=== PATIENT | female | born 1945 | race Caucasian/White ===

== ENCOUNTER 2018-11-17 10:33 | Observation (INO) | payer OTHER, MEDICARE ==
--- NOTE | 2018-11-17 10:40 | PDOC ---
History of Present Illness - General Chief Complaint: Chest Pain Stated Complaint: CHEST PAIN Time Seen by Provider: 11/17/18 10:40 History Source: Patient - History of Present Illness Initial Comments: 11/17/18 11:15 Pt presents to the ED complaining of the acute onset of jaw pain radiating to her lower neck and left chest. Pain was sharp and severe. Denies nausea, vomiting, shortness of breath. Symptoms resolved in 30 minutes with rest and deep breathing. patient was seen by Dr. Yanes in October for similar complaints , had an EKG and chest xray that were negative, but no further testing. Patient is currently chest pain free, and denies cardiac history or risk factors. 11/17/18 11:19 Past History - Past Medical History Allergies/Adverse Reactions: Allergies Allergy/AdvReac Type Severity Reaction Status Date / Time propofol Allergy Verified 09/20/15 07:45 Home Medications: Ambulatory Orders Cholecalciferol (Vitamin D3) [Vitamin D3] 2,000 unit PO DAILY capsule 05/17/15 Bupropion HCl [Wellbutrin Xl -] 150 mg PO DAILY 11/17/18 Glucosamine Sulfate Dipot Chlr [Glucosamine Sulfate] 3,000 mg PO DAILY 11/17/18 Iron 27 mg PO DAILY 11/17/18 Magnesium Oxide [Magnesium] 500 mg PO DAILY 11/17/18 Methylprednisolone [Medrol -] 4 mg PO DAILY 11/17/18 Selenium 200 mcg PO DAILY 11/17/18 Thyroid,Pork [Cardiac Cath Rn Thyroid] 105 mg PO DAILY 11/17/18 Tolterodine Tartrate [Tolterodine Tartrate ER] 4 mg PO DAILY 11/17/18 Anemia: No Asthma: No Cancer: No Cardiac Disorders: Yes (PALPITATIONS) CVA: No COPD: No CHF: No Dementia: No Diabetes: No GI Disorders: Yes (HX.COLON POLYPS,ANGULATED COLON) Disorders: No HTN: No Hypercholesterolemia: Yes Liver Disease: No Seizures: Yes Thyroid Disease: Yes (CISCO'S THYROIDITIS) - Surgical History Abdominal Surgery: No Appendectomy: No Cardiac Surgery: No Cholecystectomy: Yes Lung Surgery: No Neurologic Surgery: No Orthopedic Surgery: No - Suicide/Smoking/Psychosocial Hx Smoking Status: No Smoking History: Former smoker Have you smoked in the past 12 months: No Number of Cigarettes Smoked Daily: 0 Hx Alcohol Use: No Drug/Substance Use Hx: No Substance Use Type: None Hx Substance Use Treatment: No Review of Systems - Review of Systems Able to Perform ROS?: Yes Is the patient limited Wolof proficient: No Constitutional: No: Symptoms Reported, See HPI, Chills, Diaphoresis, Fever, Loss of Appetite, Malaise, Night Sweats, Weakness, Weight Stable, Unintentional Wgt. Loss, Unexplained wgt Loss, Other HEENTM: No: Symptoms Reported, See HPI, Eye Pain, Blurred Vision, Tearing, Recent change in vision, Double Vision, Cataracts, Ear Pain, Ocular Prothesis, Ear Discharge, Nose Pain, Nose Congestion, Tinnitus, Nose Bleeding, Hearing Loss , Throat Pain, Throat Swelling, Mouth Pain, Dental Problems, Difficulty Swallowing, Mouth Swelling, Other Respiratory: No: Symptoms reported, See HPI, Cough, Orthopnea, Shortness of Breath, SOB with Exertion, SOB at Rest, Stridor, Wheezing, Productive cough, Hemoptysis, Other Cardiac (ROS): Yes: Chest Pain. No: Symptoms Reported, See HPI, Edema, Irregular Heart Rate, Lightheadedness, Palpitations, Syncope, Chest Tightness, Other ABD/GI: No: Symptoms Reported, See HPI, Abdominal Distended, Abd. Pain w/ defecation, Blood Streaked Bowels, Constipated, Diarrhea, Difficulty Swallowing , Nausea, Poor Appetite, Poor Fluid Intake, Rectal Bleeding, Vomiting, Indigestion, Abdominal cramping, Tarry Stools, Other : No: Symptoms Reported, See HPI, Burning, Dysuria, Discharge, Frequency, Flank Pain, Hematuria, Incontinence, Pain, Urgency, Testicular Mass, Testicular Swelling, Lesions, Testicular Pain, Other Musculoskeletal: No: Symptoms Reported, See HPI, Back Pain, Gout, Joint Pain, Joint Swelling, Muscle Pain, Muscle Weakness, Neck Pain, Joint Stiffness, Other Integumentary: No: Symptoms Reported, See HPI, Bruising, Change in Color, Change in Hair/Nails, Dryness, Erythema, Flushing, Lesions, Lumps, Pallor, Pruritus, Rash, Sweating, Other Neurological: No: Symptoms reported, See HPI, Headache, Numbness, Paresthesia, Pre-Existing Deficit, Seizure, Tingling, Tremors, Weakness, Unsteady Gait, Ataxia, Dizziness, Other All Other Systems: Reviewed and Negative *Physical Exam - Physical Exam Comments: 09/08/19 11:20 gen: alert, NAD HEENT: normocephalic, atraumatic CV: rrr no m/r/g Pulm: CTA b/l Abdomen: soft non tender non distended Ext: no edema or tenderness. ED Treatment Course - LABORATORY CBC & Chemistry Diagram: 11/17/18 11:15 11/17/18 11:15 Medical Decision Making - Medical Decision Making 11/17/18 11:21 Pt presents to the ED complaining of jaw pain radiating to the left chest. EKG is normal and patient is chest pain free. Given age and the nature of her symptoms, I am concerned for ACS. HEART score is 4. Will check labs and cardiac enzymes and admit for observation for rule out [place]. *DC/Admit/Observation/Transfer Diagnosis at time of Disposition: Chest pain Qualifiers: Chest pain type: other chest pain Qualified Code(s): R07.89 - Other chest pain ; R07.8 - Other chest pain - Discharge Dispostion Condition at time of disposition: Good Decision to Admit order: Yes - Referrals Referrals: Saurav Yanes MD [Primary Care Provider] - - Patient Instructions - Post Discharge Activity
[2018-11-17] MEDS ORDERED: ASPIRIN 325 MG TABLET PO ONE (10:54)
[2018-11-17] MEDS ORDERED: ASPIRIN 81 MG CHEWABLE TABLETS ONE (11:05)
[2018-11-17 11:36] LABS: BASO % 0.2 % (0-2.0); EOS % 0.6 % (0-4.5); HEMATOCRIT 40.8 % (32.4-45.2); HEMOGLOBIN 13.3 GM/dl (10.7-15.3); LYMPH % 29.6 % (8-40); MCH 27.3 pg (25.7-33.7); MCHC 32.6 g/dl (32.0-36.0); MEAN CELL VOLUME 83.8 fl (80-96); MEAN PLT VOLUME 7.8 fl (7.5-11.1); MONO % 6.9 % (3.8-10.2); NEUT % 62.7 % (42.8-82.8); PLATELET COUNT 267 K/MM3 (134-434); RBC 4.86 M/mm3 (3.60-5.2); RDW 13.6 % (11.6-15.6); WHITE BLOOD COUNT 7.9 K/mm3 (4.0-10.8)
[2018-11-17 11:47] LABS: BILIRUBIN,TOTAL 0.6 mg/dl (0.2-1); CALCIUM 9.1 mg/dl (8.5-10); CREATININE 1.2 mg/dl (0.55-1.3); POTASSIUM 4.4 mmol/L (3.5-5.1); TOT PROT 6.3 g/dl (6.4-8.2)
[2018-11-17 12:49] LABS: EPITHELIAL CELLS FEW /hpf
[2018-11-17 15:14] VITALS: BMI 29.6
--- NOTE | 2018-11-17 17:52 | HP ---
CHIEF COMPLAINT: jaw pain with radiation to lower neck and left chest and fatigue PCP:Dr. Martinez HISTORY OF PRESENT ILLNESS: Mrs. Gottlieb is a 73 year old female with past medical history of Elvia Disease who presents with symptoms of jaw pain radiating to her lower neck and left chest described as sharp and severe which started at 10 am this morning while she was doing errands around the house. She reported symptoms lasted about 10 minutes. She denied diaphoresis, nausea, vomiting, or shortness of breath. She also reported feeling "tired". Patient was seen by Dr. Yanes in October for similar complaints. She had an EKG and chest xray which were negative , but no further testing. She also reported a similar symptoms earlier this Spring. Patient is being admitted to observation to telemetry for further cardiac evaluation. ER course was notable for: (1)2 normal troponins (2)CXR no acute pathology (3) EKG sinus rhythm no acute ischemia Recent Travel: reported travel last month PAST MEDICAL HISTORY: Elvia PAST SURGICAL HISTORY: denies Social History: Smoking:reported tobacco use only as a teenager Alcohol:no Drugs: no Family History: Father had cancer Mother had cancer Allergies propofol Allergy (Verified 09/20/15 07:45) SEVERE CHILLS,SHAKE HOME MEDICATIONS: Home Medications Medication Instructions Recorded Cholecalciferol (Vitamin D3) 2,000 unit PO DAILY capsule 05/17/15 [Vitamin D3] Bupropion HCl [Wellbutrin Xl -] 150 mg PO DAILY 11/17/18 Glucosamine Sulfate Dipot Chlr 3,000 mg PO DAILY 11/17/18 [Glucosamine Sulfate] Iron 27 mg PO DAILY 11/17/18 Magnesium Oxide [Magnesium] 500 mg PO DAILY 11/17/18 Methylprednisolone [Medrol -] 4 mg PO DAILY 11/17/18 Selenium 200 mcg PO DAILY 11/17/18 Thyroid,Pork [Breaker Engineer Thyroid] 105 mg PO DAILY 11/17/18 Tolterodine Tartrate [Tolterodine 4 mg PO DAILY 11/17/18 Tartrate ER] REVIEW OF SYSTEMS CONSTITUTIONAL: Absent: fever, chills, diaphoresis, generalized weakness, malaise, loss of appetite, weight change,fatigue HEENT: Absent: rhinorrhea, nasal congestion, throat pain, throat swelling, difficulty swallowing, mouth swelling, ear pain, eye pain, visual changes CARDIOVASCULAR: Absent: chest pain, syncope, palpitations, irregular heart rate, lightheadedness , peripheral edema RESPIRATORY: Absent: cough, shortness of breath, dyspnea with exertion, orthopnea, wheezing, stridor, hemoptysis GASTROINTESTINAL: Absent: abdominal pain, abdominal distension, nausea, vomiting, diarrhea, constipation, melena, hematochezia GENITOURINARY: Absent: dysuria, frequency, urgency, hesitancy, hematuria, flank pain, genital pain MUSCULOSKELETAL: Absent: myalgia, arthralgia, joint swelling, back pain, neck and jaw pain SKIN: Absent: rash, itching, pallor HEMATOLOGIC/IMMUNOLOGIC: Absent: easy bleeding, easy bruising, lymphadenopathy, frequent infections ENDOCRINE: Absent: unexplained weight gain, unexplained weight loss, heat intolerance, cold intolerance NEUROLOGIC: Absent: headache, focal weakness or paresthesias, dizziness, unsteady gait, seizure, mental status changes, bladder or bowel incontinence PSYCHIATRIC: Absent: anxiety, depression, suicidal or homicidal ideation, hallucinations. PHYSICAL EXAMINATION Vital Signs - 24 hr 11/17/18 11/17/18 11/17/18 10:34 11:00 12:00 Temperature 98.7 F Pulse Rate 84 Pulse Rate [ 74 70 Apical] Respiratory 16 14 14 Rate Blood Pressure 145/73 Blood Pressure 133/65 120/70 [Right Arm] O2 Sat by Pulse 99 100 100 Oximetry (%) 11/17/18 11/17/18 13:00 14:15 Temperature 97.9 F Pulse Rate 85 Pulse Rate [ 70 Apical] Respiratory 15 20 Rate Blood Pressure 134/67 Blood Pressure 130/64 [Right Arm] O2 Sat by Pulse 100 Oximetry (%) GENERAL: awake alert and fully oriented no acute distress HEAD: normal EYES: pupils equal round and reactive to light NECK: normal range of motion supple. LUNGS: breath sounds equal and clear to auscultation bilaterally no wheezes and no crackles no accessory muscle use HEART: regular rate and rhythm normal S1 and S2 ABDOMEN: soft nontender not distended, normoactive bowel sounds MUSCULOSKELETAL: normal range of motion at all joints no bony deformities or tenderness UPPER EXTREMITIES: 2+ pulses warm, well-perfused no cyanosis no peripheral edema LOWER EXTREMITIES: 2+ pulses warm well-perfused no calf tenderness no pitting edema NEUROLOGICAL: no neuro focal deficits normal speech PSYCHIATRIC: cooperative good eye contact appropriate mood and affect SKIN: warm dry normal turgor no rashes or lesions normal capillary refill Laboratory Results - last 24 hr 11/17/18 11/17/18 11/17/18 11:15 11:15 11:15 WBC 7.9 RBC 4.86 Hgb 13.3 Hct 40.8 MCV 83.8 MCH 27.3 MCHC 32.6 RDW 13.6 Plt Count 267 MPV 7.8 Absolute Neuts (auto) 5.1 Neutrophils % 62.7 Lymphocytes % 29.6 Monocytes % 6.9 Eosinophils % 0.6 Basophils % 0.2 Sodium 142 Potassium 4.4 Chloride 105 Carbon Dioxide 30 Anion Gap 7 L BUN 21.0 H Creatinine 1.2 Est GFR (CKD-EPI)AfAm 51.56 Est GFR (CKD-EPI)NonAf 44.48 Random Glucose 104 Calcium 9.1 Total Bilirubin 0.6 AST 17 ALT 16 Alkaline Phosphatase 78 Creatine Kinase 85 Troponin I < 0.03 Total Protein 6.3 L Albumin 4.0 Urine Color Urine Appearance Urine pH Urine Protein Urine Glucose (UA) Urine Ketones Urine Blood Urine Nitrite Urine Bilirubin Urine Urobilinogen Ur Leukocyte Esterase Urine RBC Urine WBC Ur Transition Epith Cell Urine Bacteria 11/17/18 11/17/18 12:20 16:00 WBC RBC Hgb Hct MCV MCH MCHC RDW Plt Count MPV Absolute Neuts (auto) Neutrophils % Lymphocytes % Monocytes % Eosinophils % Basophils % Sodium Potassium Chloride Carbon Dioxide Anion Gap BUN Creatinine Est GFR (CKD-EPI)AfAm Est GFR (CKD-EPI)NonAf Random Glucose Calcium Total Bilirubin AST ALT Alkaline Phosphatase Creatine Kinase Troponin I < 0.03 Total Protein Albumin Urine Color Yellow Urine Appearance Clear Urine pH 7.0 Urine Protein Negative Urine Glucose (UA) Negative Urine Ketones Negative Urine Blood Negative Urine Nitrite Negative Urine Bilirubin Negative Urine Urobilinogen 0.2 Ur Leukocyte Esterase 1+ Urine RBC 0-2 Urine WBC 2-5 Ur Transition Epith Cell Few Urine Bacteria Few ASSESSMENT/PLAN: 73 year old female with past medical history of Elvia Disease who presented with reoccurring symptoms of jaw pain radiating to her lower neck and left chest described as "sharp and severe", lasting about 10 minutes on exertional activity and relieved with rest. Patient was admitted to observation to telemetry for further cardiac evaluation. #1 Chest Pain R/O ACS versus Angina Workup- chest x ray normal, 2 normal troponins, EKG with no evidence of acute ischemia. Symptoms concerning for angina. Continue to trend troponins. D-Dimer pending, low risk for PE-no evidence of tachycardia or hypoxia Baby aspirin added Check fasting lipid panel in am Check echocardiogram to evaluate LV function and exclude wall motion and structural abnormalities Cardiology consulted- Dr. Betancourt Will keep NPO after midnight in anticipation of stress test if warranted #2 Elvia Disease Continue with methyprednisolone Check TSH, free T3 and free T4 Visit type - Emergency Visit Emergency Visit: Yes ED Registration Date: 11/17/18 Care time: The patient presented to the Emergency Department on the above date and was hospitalized for further evaluation of their emergent condition. - New Patient This patient is new to me today: Yes Date on this admission: 11/17/18 - Critical Care Critical Care patient: No
[2018-11-18 07:39] LABS: HEMATOCRIT 40.5 % (32.4-45.2); HEMOGLOBIN 13.1 GM/dl (10.7-15.3); MCH 27.3 pg (25.7-33.7); MCHC 32.4 g/dl (32.0-36.0); MEAN CELL VOLUME 84.1 fl (80-96); MEAN PLT VOLUME 7.7 fl (7.5-11.1); PLATELET COUNT 274 K/MM3 (134-434); RBC 4.82 M/mm3 (3.60-5.2); RDW 13.4 % (11.6-15.6); WHITE BLOOD COUNT 9.2 K/mm3 (4.0-10.8)
[2018-11-18 07:46] LABS: CALCIUM 8.8 mg/dl (8.5-10); POTASSIUM 3.9 mmol/L (3.5-5.1)
[2018-11-18 08:11] LABS: CHOLESTEROL 245 mg/dl (50-200); HDL CHOLESTEROL 86 mg/dl (40-60); TRIGLYCERIDES 99 mg/dl (0-150)
[2018-11-18 09:06] VITALS: TEMP 98.1
[2018-11-18] MEDS ORDERED: PT OWN MED DRAWER 7, Y5N ONE (09:52)
[2018-11-18] MEDS ORDERED: MAGNESIUM OXIDE 400 MG TABLET (FP) PO SCH (10:00)
[2018-11-18] MEDS ORDERED: IRON 27 MG PO SCH (10:00)
[2018-11-18] MEDS ORDERED: GLUCOSAMINE SULFATE DIPOT CHLR PO SCH (10:00)
[2018-11-18] MEDS ORDERED: CHOLECALCIFEROL (VIT D3) 1,000 UNIT (25 MCG) TABLET PO SCH (10:00)
[2018-11-18] MEDS ORDERED: TOLTERODINE TARTRATE LA 4 MG CAP.SR.24H (FP) PO SCH (10:00)
[2018-11-18] MEDS ORDERED: methylPREDNISolone 4 MG TABLET PO SCH (10:00)
[2018-11-18] MEDS ORDERED: ASPIRIN 81 MG CHEWABLE TABLETS PO SCH (10:00)
[2018-11-18] MEDS: MAGNESIUM OXIDE 400 MG TABLET (FP) PO SCH ×2 (10:03→11:39)
[2018-11-18] MEDS ORDERED: THYROID 30 MG TABLET PO SCH ×2 (10:45→11:00)
[2018-11-18] MEDS ORDERED: THYROID 15 MG TABLET PO SCH ×2 (11:00→11:15)
--- NOTE | 2018-11-18 11:33 | EKG ---
Test Reason : Blood Pressure : / mmHG Vent. Rate : 059 BPM Atrial Rate : 059 BPM P-R Int : 126 ms QRS Dur : 072 ms QT Int : 400 ms P-R-T Axes : 045 -10 005 degrees QTc Int : 396 ms SINUS BRADYCARDIA OTHERWISE NORMAL ECG WHEN COMPARED WITH ECG OF 17-NOV-2018 10:41, NO SIGNIFICANT CHANGE WAS FOUND Confirmed by CÉSAR MERCADO MD ([id number]) on 11/18/2018 11:33:07 AM Referred By: MARISOL LEDESMA Confirmed By:CÉSAR MERCADO MD
--- NOTE | 2018-11-18 11:33 | EKG ---
Test Reason : Blood Pressure : / mmHG Vent. Rate : 079 BPM Atrial Rate : 079 BPM P-R Int : 134 ms QRS Dur : 070 ms QT Int : 360 ms P-R-T Axes : 060 -12 023 degrees QTc Int : 412 ms NORMAL SINUS RHYTHM NORMAL ECG NO PREVIOUS ECGS AVAILABLE Confirmed by JESS GARCIA, CÉSAR ([id number]) on 11/18/2018 11:33:15 AM Referred By: ALICIA HOLDEN Confirmed By:CÉSAR MERCADO MD
--- NOTE | 2018-11-18 13:02 | CON.CARD ---
Consult Consult Specialty:: Cardiology Referred by:: Jessica Reason for Consultation:: chest pain - History of Present Illness Chief Complaint: chest pain History of Present Illness: 73 year old female with past medical history of Elvia Disease who presents with symptoms of jaw pain radiating to her lower neck and left chest described as sharp and severe while she was doing errands around the house. She reported symptoms lasted about 10 minutes. She denied diaphoresis, nausea, vomiting, or shortness of breath. She also reported feeling "tired". Patient was seen by Dr. Yanes in October for similar complaints. She had an EKG and chest xray which were negative, but no further testing. She was found to be hyperthyroid. ECG normal and eddie negative. Pain recurred in hospital without ECG changes. Nonexertional. Baseline exercise tolerance is good. - History Source History Provided By: Patient, Medical Record - Past Medical History ...: No - Alcohol/Substance Use Hx Alcohol Use: No - Smoking History Smoking history: Former smoker Have you smoked in the past 12 months: No Aproximately how many cigarettes per day: 0 Home Medications - Allergies Allergies/Adverse Reactions: Allergies Allergy/AdvReac Type Severity Reaction Status Date / Time propofol Allergy Verified 09/20/15 07:45 - Home Medications Home Medications: Ambulatory Orders Cholecalciferol (Vitamin D3) [Vitamin D3] 2,000 unit PO DAILY capsule 05/17/15 Bupropion HCl [Wellbutrin Xl -] 150 mg PO DAILY 11/17/18 Glucosamine Sulfate Dipot Chlr [Glucosamine Sulfate] 3,000 mg PO DAILY 11/17/18 Iron 27 mg PO DAILY 11/17/18 Magnesium Oxide [Magnesium] 500 mg PO DAILY 11/17/18 Methylprednisolone [Medrol -] 4 mg PO DAILY 11/17/18 Selenium 200 mcg PO DAILY 11/17/18 Thyroid,Pork [Associate Dean Thyroid] 105 mg PO DAILY 11/17/18 Tolterodine Tartrate [Tolterodine Tartrate ER] 4 mg PO DAILY 11/17/18 Vital Signs: Vital Signs Temperature 98.1 F 11/18/18 09:00 Pulse Rate 67 11/18/18 09:00 Respiratory Rate 18 11/18/18 09:20 Blood Pressure 111/71 11/18/18 09:00 O2 Sat by Pulse Oximetry (%) 98 11/18/18 09:20 Constitutional: Yes: No Distress, Calm Eyes: Yes: Conjunctiva Clear, EOM Intact HENT: Yes: Normocephalic Neck: Yes: Supple, Trachea Midline Respiratory: Yes: CTA Bilaterally Gastrointestinal: Yes: Normal Bowel Sounds, Soft Cardiovascular: Yes: Regular Rate and Rhythm JVD: No Carotid Bruit: No PMI: Non-Displaced Heart Sounds: Yes: S1 Musculoskeletal: Yes: WNL Extremities: Yes: WNL Edema: No Peripheral Pulses WNL: Yes - Other Data Labs, Other Data: CBC, BMP 11/18/18 06:53 11/18/18 06:53 Troponin, BNP 11/17/18 11/17/18 16:00 22:00 Troponin I < 0.03 < 0.03 Troponin, BNP 11/17/18 11/17/18 16:00 22:00 Troponin I < 0.03 < 0.03 Imaging - Results Chest X-ray: Report Reviewed (jamaal) EKG: Report Reviewed (nl) Assessment/Plan 73F hashimotos disease presents with low risk atypical chest pain -no need for inpatient cardiac workup. -echo cancelled. -ms home for outpatient fu with Dr Mihai Betancourt [phone]
--- NOTE | 2018-11-18 13:55 | DS ---
Physical Exam: SUBJECTIVE: Patient seen and examined OBJECTIVE: Vital Signs Period Temp Pulse Resp BP Sys/Rushing Pulse Ox Last 24 Hr 97.8 F-98.9 F 64-85 18-20 98-134/60-72 98-100 PHYSICAL EXAM GENERAL: The patient is awake, alert, and fully oriented, in no acute distress. HEAD: Normal with no signs of trauma. EYES: PERRL, extraocular movements intact, sclera anicteric, conjunctiva clear. ENT: Ears normal, nares patent, oropharynx clear without exudates, moist mucous membranes. NECK: Trachea midline, full range of motion, supple. LUNGS: Breath sounds equal, clear to auscultation bilaterally, no wheezes, no crackles, no accessory muscle use. HEART: Regular rate and rhythm, S1, S2 without murmur, rub or gallop. ABDOMEN: Soft, nontender, nondistended, normoactive bowel sounds, no guarding, no rebound, no hepatosplenomegaly, no masses. EXTREMITIES: 2+ pulses, warm, well-perfused, no edema. NEUROLOGICAL: Cranial nerves II through XII grossly intact. Normal speech, gait not observed. PSYCH: Normal mood, normal affect. SKIN: Warm, dry, normal turgor, no rashes or lesions noted. LABS Laboratory Results - last 24 hr 11/17/18 11/17/18 11/17/18 16:00 19:00 22:00 WBC RBC Hgb Hct MCV MCH MCHC RDW Plt Count MPV D-Dimer 341 Sodium Potassium Chloride Carbon Dioxide Anion Gap BUN Creatinine Est GFR (CKD-EPI)AfAm Est GFR (CKD-EPI)NonAf Random Glucose Calcium Troponin I < 0.03 Triglycerides Cholesterol Total LDL Cholesterol HDL Cholesterol TSH Cancelled Free T4 11/17/18 11/17/18 11/18/18 22:00 22:00 06:53 WBC 9.2 RBC 4.82 Hgb 13.1 Hct 40.5 MCV 84.1 MCH 27.3 MCHC 32.4 RDW 13.4 Plt Count 274 MPV 7.7 D-Dimer Sodium Potassium Chloride Carbon Dioxide Anion Gap BUN Creatinine Est GFR (CKD-EPI)AfAm Est GFR (CKD-EPI)NonAf Random Glucose Calcium Troponin I < 0.03 Triglycerides Cholesterol Total LDL Cholesterol HDL Cholesterol TSH 0.01 L Free T4 0.93 11/18/18 11/18/18 06:53 06:53 WBC RBC Hgb Hct MCV MCH MCHC RDW Plt Count MPV D-Dimer Sodium 140 Potassium 3.9 Chloride 105 Carbon Dioxide 29 Anion Gap 6 L BUN 17.0 Creatinine 1.0 Est GFR (CKD-EPI)AfAm 64.27 Est GFR (CKD-EPI)NonAf 55.45 Random Glucose 80 Calcium 8.8 Troponin I Triglycerides 99 Cholesterol 245 H Total LDL Cholesterol 139 H HDL Cholesterol 86 H TSH Free T4 HOSPITAL COURSE: Date of Admission:11/17/18 Date of Discharge: 11/18/18 Discharge Summary Reason For Visit: CHEST PAIN Current Active Problems Chest pain (Acute) Condition: Good - Instructions - Home Medications Comprehensive Discharge Medication List: Ambulatory Orders Cholecalciferol (Vitamin D3) [Vitamin D3] 2,000 unit PO DAILY capsule 05/17/15 Bupropion HCl [Wellbutrin Xl -] 150 mg PO DAILY 11/17/18 Glucosamine Sulfate Dipot Chlr [Glucosamine Sulfate] 3,000 mg PO DAILY 11/17/18 Iron 27 mg PO DAILY 11/17/18 Magnesium Oxide [Magnesium] 500 mg PO DAILY 11/17/18 Methylprednisolone [Medrol -] 4 mg PO DAILY 11/17/18 Selenium 200 mcg PO DAILY 11/17/18 Thyroid,Pork [Library Media Assistant Thyroid] 105 mg PO DAILY 11/17/18 Tolterodine Tartrate [Tolterodine Tartrate ER] 4 mg PO DAILY 11/17/18
[2018-11-18 14:04] VITALS: BP 112/57; PULSE 75
== END 2018-11-18 14:20 | disposition home or self-care (01) ==
LOC: FER 10:33 → FM/S 14:15
PROVIDERS: ADMIT Internal Medicine; ATTEND Nurse Practitioner Acute Care
DX: R07.89 Other chest pain (principal); E06.3 Autoimmune thyroiditis; E78.00 Pure hypercholesterolemia, unspecified; Z87.891 Personal history of nicotine dependence
CPT/HCPCS: 36415; 71045-TC-FY; 80048; 80053; 80061; 81003; 81015; 82550; 83721; 84439; 84443; 84481; 84484; 85025; 85027; 85379; 93005; 99285-25; G0378

== ENCOUNTER 2022-04-05 13:05 | Emergency (ER) | payer OTHER, MEDICARE ==
[2022-04-05 13:28] VITALS: BP 125/78; PULSE 79; RESP 18; TEMP 98.2; BMI 28.7
== END 2022-04-05 15:01 | disposition home or self-care (01) ==
LOC: FER 13:05
DX: J01.90 Acute sinusitis, unspecified (principal); H61.21 Impacted cerumen, right ear
CPT/HCPCS: 70450-TC; 99284-25